=== PATIENT | female | born 1985 | race African-American/Black ===

== ENCOUNTER → 2017-11-27 | Outpatient (CLI) | payer OTHER, SELFPAY | LOC: M WUC 12:55 | DX: S90.32XA Contusion of left foot, initial encounter (principal); X58.XXXA Exposure to other specified factors, initial encounter; Y92.9 Unspecified place or not applicable | CPT/HCPCS: 73630 ==

== ENCOUNTER → 2019-11-12 | Outpatient (CLI) | payer OTHER ==
[2019-11-12 12:40] LABS: C REACTIVE PROTEIN QUANTITATIV 1.87 MG/DL (0.00-0.30); RHEUMATOID FACTOR QUANT < 10.0 IU/ML (<15.0)
[2019-11-16 11:12] LABS: ANTI DS-DNA AB Negative (Negative); ANTI-SMOOTH MUSCLE ANTIBODY 9 Units (0-19); CYCLIC CITRULLINATED PEPTIDE 6 units (0-19); RNP ANTIBODY 5.9 AI (0.0-0.9); SMITHS ANTIBODY < 0.2 AI (0.0-0.9); SSA SJOGRENS A <0.2 AI (0.0-0.9); SSB SJOGRENS B <0.2 AI (0.0-0.9)
== END ==
LOC: M PLALAB 09:59
PROVIDERS: ATTEND Internal Medicine Rheumatology
DX: R76.8 Other specified abnormal immunological findings in serum (principal)